=== PATIENT | female | born 2000 | race Caucasian/White ===

== ENCOUNTER 2019-01-13 19:38 | Emergency (ER) | payer SELFPAY ==
[~2019-01-13] VITALS: Ht 172.7 cm; Wt 60.6 kg
[2019-01-13 20:04] VITALS: BP 127/67; PULSE 89; RESP 18; Ht 172.7 cm; Wt 60.6 kg
== END 2019-01-13 20:40 | disposition left against medical advice (07) ==
LOC: FTE 19:38
DX: Z53.21 Procedure and treatment not carried out due to patient leaving prior to being seen by health care provider (principal)
CPT/HCPCS: 93005